=== PATIENT | male | born 1990 | race Two or more races ===

== ENCOUNTER 2019-07-20 21:25 | Emergency (ER) | payer OTHER ==
[~2019-07-20] VITALS: Ht 165.1 cm; Wt 69.0 kg
[2019-07-20 21:29] VITALS: BP 117/71
== END 2019-07-20 23:00 | disposition left against medical advice (07) ==
LOC: ER 21:25
DX: S80.861A Insect bite (nonvenomous), right lower leg, initial encounter (principal); Z53.21 Procedure and treatment not carried out due to patient leaving prior to being seen by health care provider; W57.XXXA Bitten or stung by nonvenomous insect and other nonvenomous arthropods, initial encounter; Y93.89 Activity, other specified; Y92.89 Other specified places as the place of occurrence of the external cause; Y99.8 Other external cause status

== ENCOUNTER 2023-12-04 08:42 | Emergency (ER) | payer MEDICAID, OTHER ==
[~2023-12-04] VITALS: Ht 170.2 cm; Wt 73.0 kg
[2023-12-04 08:47] VITALS: O2SAT 100
[2023-12-04] MEDS: IBUPROFEN 400MG TABLET PO ONE (09:30)
[2023-12-04] MEDS: LIDOCAINE 5% PATCH TOP SCH (09:30)
[2023-12-04] MEDS: ACETAMINOPHEN 325MG TABLET PO ONE (09:30)
[2023-12-04] MEDS: HYDROCODONE/ACETAMINOPHEN 5/325MG TABLET PO ONE (11:30)
[2023-12-04 14:45] VITALS: BP 138/88; PULSE 90; RESP 16; TEMP 98
== END 2023-12-04 14:36 | disposition home or self-care (01) ==
LOC: ER 08:42
DX: S93.402A Sprain of unspecified ligament of left ankle, initial encounter (principal); Z88.0 Allergy status to penicillin; V19.3XXA Pedal cyclist (driver) (passenger) injured in unspecified nontraffic accident, initial encounter; Y93.89 Activity, other specified; Y92.89 Other specified places as the place of occurrence of the external cause; Y99.8 Other external cause status
CPT/HCPCS: 73502; 73610; 99284; Z7610